=== PATIENT | male | born 1960 | race Caucasian/White ===

== ENCOUNTER 2023-06-22 01:13 | Day surgery (SDC) | payer MEDICARE, MEDICAID, SELFPAY ==
--- NOTE | 2023-06-04 10:48 | PC.NURSE ---
Pt client of [facility]. Spoke with facility. Will fax us pt facesheet with history, med list, and POA. Informed them we will be calling back to go over instructions and prep.
--- NOTE | 2023-06-10 15:00 | PC.NURSE ---
faxed prep instructions to [facility] and confirmation rec'd. called to speak with porfirio romo at facility to get more medical information but she was not available this afternoon. chantale at facilty said demetrius would be back tomorrow. bahman call back then. chantale also confirmed they did receive the prep instructions.
--- NOTE | 2023-06-12 08:20 | PC.NURSE ---
Reached back out to [facility] to speak to Desi LEROY to finish interview for patient's pre admission testing but she is out of office today. I left a message for her to gives us a call back in regards to the patient and his procedure.
[2023-06-22 09:32] VITALS: BMI 28.0
[2023-06-22 09:36] VITALS: BP 115/66; PULSE 92; RESP 18; O2SAT 92
[2023-06-22] MEDS: LACTATED RINGERS 1,000 ML 150 ML IV CONT (09:38)
--- NOTE | 2023-06-22 10:04 | P.PNAN_ITS ---
Anes - Initial Pre Proc Eval Procedure: Operation Date: 06/22/23 10:30 Proposed Procedures p Screening Colonoscopy - Napoleon Zamarripa MD Date/Time: 06/22/23 10:04 Surgeon: Napoleon Zamarripa MD Pre Op Diagnosis: neoplasm screening Patient Data Age: 63 Gender: M Height: 1.68 m Weight: 79 kg Last Vital Signs Pulse 92 06/22/23 09:36 Resp 18 06/22/23 09:36 BP 115/66 06/22/23 09:36 Pulse Ox 92 06/22/23 09:36 O2 Del Method Room Air 06/22/23 09:36 Allergies Allergy/AdvReac Type Severity Reaction Status Date / Time aspirin Allergy Unknown Verified 06/22/23 09:30 Home Medications Medication Instructions Recorded Confirmed Type acetaminophen 325 mg tablet 650 mg PO Q4H PRN Pain 06/04/23 06/12/23 History albuterol sulfate 90 mcg/actuation 2 puff inhalation QID PRN SOB 06/04/23 06/12/23 History aerosol inhaler alendronate 70 mg tablet 70 mg PO WEEKLY 06/04/23 06/12/23 History aripiprazole 15 mg tablet 15 mg PO DAILY 06/04/23 06/12/23 History calcium carbonate 600 mg-vitamin 1 tablet PO BID 06/04/23 06/12/23 History D3 10 mcg (400 unit) tablet (Calcium 600 + D(3)) cetirizine 10 mg tablet 10 mg PO DAILY 06/04/23 06/12/23 History divalproex 250 mg tablet,delayed 250 mg PO HS 06/04/23 06/12/23 History release divalproex 500 mg tablet,delayed 500 mg PO Q12H 06/04/23 06/12/23 History release docusate sodium 100 mg capsule 100 mg PO DAILY 06/04/23 06/12/23 History felbamate 600 mg tablet 600 mg PO DAILY 06/04/23 06/12/23 History fluticasone propionate 50 1 spray intranasal DAILY 06/04/23 06/12/23 History mcg/actuation nasal spray,suspension furosemide 20 mg tablet 20 mg PO BID 06/04/23 06/12/23 History lamotrigine 100 mg tablet 100 mg PO BID 06/04/23 06/12/23 History latanoprost 0.005 % eye drops 1 drp EACH EYE QPM 06/04/23 06/12/23 History levothyroxine 100 mcg capsule 100 mcg PO DAILY 06/04/23 06/12/23 History magnesium citrate 300 ml PO ONCE PRN Constipation 06/04/23 06/12/23 History magnesium oxide 400 mg (241.3 mg 400 mg PO DAILY 06/04/23 06/12/23 History magnesium) tablet spironolactone 25 mg tablet 25 mg PO DAILY 06/04/23 06/12/23 History Results Review: All pre-operative results and documents have been reviewed as part of the pre- operative evaluation. [facility] Social History Social History Smoking status: Never smoker Alcohol intake: never Substance use: never Substance use type: does not use Living arrangements: correction Additional living arrangements comments: lives at the [facility], information faxed from facility Spiritual care concerns: No Anes - Eval Final PreProcedure Day of Procedure 06/22/23 10:04 Results Review: All pre-operative results and documents have been reviewed as part of the pre- operative evaluation. Informed Consent: The patient's anesthetic plan and its attendant risks and benefits were discussed with the patient/family/POA. Questions were solicited and answers provided to the satisfaction of the patient/family/POA.
--- NOTE | 2023-06-22 10:08 | WPDANESEPPF ---
Anes - Initial Pre Proc Eval Procedure: Operation Date: 06/22/23 10:30 Proposed Procedures p Screening Colonoscopy - Napoleon Zamarripa MD Date/Time: 06/22/23 10:08 Surgeon: Napoleon Zamarripa MD Pre Op Diagnosis: neoplasm screening Patient Data Age: 63 Gender: M Height: 1.68 m Weight: 79 kg Last Vital Signs Pulse 92 06/22/23 09:36 Resp 18 06/22/23 09:36 BP 115/66 06/22/23 09:36 Pulse Ox 92 06/22/23 09:36 O2 Del Method Room Air 06/22/23 09:36 Allergies Allergy/AdvReac Type Severity Reaction Status Date / Time aspirin Allergy Unknown Verified 06/22/23 09:30 Home Medications Medication Instructions Recorded Confirmed Type acetaminophen 325 mg tablet 650 mg PO Q4H PRN Pain 06/04/23 06/12/23 History albuterol sulfate 90 mcg/actuation 2 puff inhalation QID PRN SOB 06/04/23 06/12/23 History aerosol inhaler alendronate 70 mg tablet 70 mg PO WEEKLY 06/04/23 06/12/23 History aripiprazole 15 mg tablet 15 mg PO DAILY 06/04/23 06/12/23 History calcium carbonate 600 mg-vitamin 1 tablet PO BID 06/04/23 06/12/23 History D3 10 mcg (400 unit) tablet (Calcium 600 + D(3)) cetirizine 10 mg tablet 10 mg PO DAILY 06/04/23 06/12/23 History divalproex 250 mg tablet,delayed 250 mg PO HS 06/04/23 06/12/23 History release divalproex 500 mg tablet,delayed 500 mg PO Q12H 06/04/23 06/12/23 History release docusate sodium 100 mg capsule 100 mg PO DAILY 06/04/23 06/12/23 History felbamate 600 mg tablet 600 mg PO DAILY 06/04/23 06/12/23 History fluticasone propionate 50 1 spray intranasal DAILY 06/04/23 06/12/23 History mcg/actuation nasal spray,suspension furosemide 20 mg tablet 20 mg PO BID 06/04/23 06/12/23 History lamotrigine 100 mg tablet 100 mg PO BID 06/04/23 06/12/23 History latanoprost 0.005 % eye drops 1 drp EACH EYE QPM 06/04/23 06/12/23 History levothyroxine 100 mcg capsule 100 mcg PO DAILY 06/04/23 06/12/23 History magnesium citrate 300 ml PO ONCE PRN Constipation 06/04/23 06/12/23 History magnesium oxide 400 mg (241.3 mg 400 mg PO DAILY 06/04/23 06/12/23 History magnesium) tablet spironolactone 25 mg tablet 25 mg PO DAILY 06/04/23 06/12/23 History Patient hx anesthesia problems: none Family hx anesthesia problems: none Results Review: All pre-operative results and documents have been reviewed as part of the pre-operative evaluation. [facility] Social History Social History Smoking status: Never smoker Alcohol intake: never Substance use: never Substance use type: does not use Living arrangements: detention Additional living arrangements comments: lives at the [facility], information faxed from facility Spiritual care concerns: No Anes - Eval Final PreProcedure Day of Procedure 06/22/23 10:08 Patient weight: overweight Heart: regular rate and rhythm Lungs: decreased breath sounds Airway: Mallampati scale class III Neurological: lethargic Last oral intake: >/= 8 hours ASA classification: III Emergent: no Anesthetic plan: proceed Anesthesia type and monitoring: general GIVS and standard monitoring Results Review: All pre-operative results and documents have been reviewed as part of the pre-operative evaluation. Informed Consent: The patient's anesthetic plan and its attendant risks and benefits were discussed with the patient/family/POA. Questions were solicited and answers provided to the satisfaction of the patient/family/POA.
--- NOTE | 2023-06-22 10:09 | PM.HPGS ---
History of Present Illness History of Present Illness Consent: Risks, benefits, and alternatives have been discussed and questions answered. Patient agrees to proceed with procedure. Chief complaint: neoplasm screening Narrative: Chandra Diana is a 63 year old male here for first screening colonoscopy Review of Systems Review of Systems: All systems reviewed & are unremarkable except as noted in HPI and below PMFSH Past Medical History Medical History (Updated 06/22/23 @ 10:10 by Napoleon Zamarripa MD) Colon cancer screening Social History Social History Smoking status: Never smoker Alcohol intake: never Substance use: never Substance use type: does not use Living arrangements: long-term Additional living arrangements comments: lives at the [facility], information faxed from facility Spiritual care concerns: No Meds Home Medications and Allergies Home Medications Medication Instructions Recorded Confirmed Type acetaminophen 325 mg tablet 650 mg PO Q4H PRN Pain 06/04/23 06/12/23 History albuterol sulfate 90 mcg/actuation 2 puff inhalation QID PRN SOB 06/04/23 06/12/23 History aerosol inhaler alendronate 70 mg tablet 70 mg PO WEEKLY 06/04/23 06/12/23 History aripiprazole 15 mg tablet 15 mg PO DAILY 06/04/23 06/12/23 History calcium carbonate 600 mg-vitamin 1 tablet PO BID 06/04/23 06/12/23 History D3 10 mcg (400 unit) tablet (Calcium 600 + D(3)) cetirizine 10 mg tablet 10 mg PO DAILY 06/04/23 06/12/23 History divalproex 250 mg tablet,delayed 250 mg PO HS 06/04/23 06/12/23 History release divalproex 500 mg tablet,delayed 500 mg PO Q12H 06/04/23 06/12/23 History release docusate sodium 100 mg capsule 100 mg PO DAILY 06/04/23 06/12/23 History felbamate 600 mg tablet 600 mg PO DAILY 06/04/23 06/12/23 History fluticasone propionate 50 1 spray intranasal DAILY 06/04/23 06/12/23 History mcg/actuation nasal spray,suspension furosemide 20 mg tablet 20 mg PO BID 06/04/23 06/12/23 History lamotrigine 100 mg tablet 100 mg PO BID 06/04/23 06/12/23 History latanoprost 0.005 % eye drops 1 drp EACH EYE QPM 06/04/23 06/12/23 History levothyroxine 100 mcg capsule 100 mcg PO DAILY 06/04/23 06/12/23 History magnesium citrate 300 ml PO ONCE PRN Constipation 06/04/23 06/12/23 History magnesium oxide 400 mg (241.3 mg 400 mg PO DAILY 06/04/23 06/12/23 History magnesium) tablet spironolactone 25 mg tablet 25 mg PO DAILY 06/04/23 06/12/23 History Allergies Allergy/AdvReac Type Severity Reaction Status Date / Time aspirin Allergy Unknown Verified 06/22/23 09:30 Vital Signs Vital Signs - 24 hr 06/22/23 09:36 Pulse Rate 92 Respiratory Rate 18 Blood Pressure 115/66 Pulse Oximetry 92 Oxygen Delivery Room Air Exam Const: General: comfortable and no acute distress HENMT: Face/Nose/Sinus: Normal nares present Eyes: General: appearance normal, both eyes and all related structures Neck: Neck: no JVD Resp: Auscultation: clear to auscultation bilaterally Cardio: Rate: regular rate Rhythm: regular rhythm GI: Inspection: non-distended GI Palp: Yes Soft to palpation Skin: General skin exam: normal color Neuro: General: gait normal Speech: normal speech Extrem: General: normal to inspection Psych: Mental Status: mental status grossly normal Assessment and Plan Assessment and plan (1) Colon cancer screening: Code(s): Z12.11 - Encounter for screening for malignant neoplasm of colon Status: Acute Assessment and Plan: colonoscopy
[2023-06-22 10:59] VITALS: BP 99/61; PULSE 75; RESP 25; O2SAT 97
[2023-06-22 11:09] VITALS: BP 111/71; PULSE 75; RESP 17; O2SAT 97
[2023-06-22 11:19] VITALS: BP 101/78; PULSE 74; RESP 20; O2SAT 94
== END 2023-06-22 11:44 | disposition home or self-care (01) ==
PROVIDERS: PCP Nurse Practitioner Family; Visit Provider Internal Medicine Gastroenterology
PROC: 0DJD8ZZ Inspection of Lower Intestinal Tract, Via Natural or Artificial Opening Endoscopic (ICD-10-PCS; CPT 45378; principal; 2023-06-22 10:30)
DX: Z12.11 Encounter for screening for malignant neoplasm of colon (principal); D12.2 Benign neoplasm of ascending colon; D12.3 Benign neoplasm of transverse colon; D12.4 Benign neoplasm of descending colon; D12.8 Benign neoplasm of rectum; K64.8 Other hemorrhoids; Z79.51 Long term (current) use of inhaled steroids; Z79.83 Long term (current) use of bisphosphonates
CPT/HCPCS: 45385; 88305; J2704; J7120